=== PATIENT | male | born 1995 | race African-American/Black ===

== ENCOUNTER 2019-03-28 04:09 | Emergency (ER) | payer SELFPAY ==
[~2019-03-28] VITALS: Ht 188 cm; Wt 79.5 kg
[2019-03-28 04:19] VITALS: TEMP 98.7
[2019-03-28] MEDS ORDERED: NORCO 325 MG-51 TAB PO (08:05)
[2019-03-28] MEDS ORDERED: AMOXICILLIN 8751 TAB PO (08:05)
[2019-03-28 08:51] VITALS: BP 119/68; PULSE 82
== END 2019-03-28 08:55 | disposition home or self-care (01) ==
LOC: COL.ER 04:09
DX: S52.202A Unspecified fracture of shaft of left ulna, initial encounter for closed fracture (principal); S01.01XA Laceration without foreign body of scalp, initial encounter; Z23 Encounter for immunization; Y08.89XA Assault by other specified means, initial encounter
CPT/HCPCS: Q4050

== ENCOUNTER → 2019-04-10 | Outpatient (CLI) | payer SELFPAY ==
[~2019-04-10] MED LIST: AMOXICILLIN 8751 TAB PO; NORCO 325 MG-51 TAB PO
[2019-04-10 13:51] VITALS: BP 148/79; PULSE 67; TEMP 98
== END ==
LOC: COL.ER 13:44
DX: S01.91XD Laceration without foreign body of unspecified part of head, subsequent encounter (principal); X58.XXXD Exposure to other specified factors, subsequent encounter